=== PATIENT | female | born 1950 | race Caucasian/White ===

== ENCOUNTER 2016-07-19 09:22 | Outpatient (CLI) | payer SELFPAY | END 2016-07-19 09:23 | LOC: RAD 09:22 | PROVIDERS: ATTEND Internal Medicine Endocrinology, Diabetes & Metabolism | DX: E21.3 Hyperparathyroidism, unspecified (principal) | CPT/HCPCS: 77080 ==

== ENCOUNTER 2017-05-09 11:28 | Outpatient (CLI) | payer MEDICARE | END 2017-05-09 11:30 | LOC: LAB 11:28 | PROVIDERS: ATTEND Family Medicine | DX: K25.9 Gastric ulcer, unspecified as acute or chronic, without hemorrhage or perforation (principal) | CPT/HCPCS: 87338 ==